=== PATIENT | female | born 1940 | race Asian ===

== ENCOUNTER 2018-04-11 02:31 | Inpatient (IN) | payer BC, OTHER ==
[2018-04-11] MEDS ORDERED: ALBUTEROL HFA 8 GM INHALER INH ×2 (04:00→05:36)
[2018-04-11] MEDS ORDERED: TRIAMCINOLONE ACET 0.1% 15 GM CR TOP (04:00)
[2018-04-11] MEDS ORDERED: NITROGLYCERIN (SL) 0.4 MG TAB SL (04:30)
[2018-04-11] MEDS ORDERED: ACETAMINOPHEN 325 MG TAB PO (04:30)
[2018-04-11] MEDS ORDERED: morphine 2 MG INJ IV (04:30)
[2018-04-11 07:21] LABS: CHOLESTEROL 149 mg/dl (100-200)
[2018-04-11 07:21] LABS: CHOL/HDL RATIO 2.2 RATIO; HDL CHOLESTEROL 66 mg/dl (33-92); LDL CHOLESTEROL,CALCULATED 74 mg/dl; TRIGLYCERIDES 46 mg/dl (0-149)
[2018-04-11 07:30] LABS: TROPONIN-I < 0.012 ng/ml (0.000-0.120)
[2018-04-11] MEDS: FISH OIL 1,000 MG CAP PO ×2 (08:26→20:46)
[2018-04-11] MEDS: AMLODIPINE 5 MG TAB PO (08:26)
[2018-04-11] MEDS: LOSARTAN 50 MG TAB PO (08:26)
[2018-04-11] MEDS: CYCLOSPORINE 0.05% OPH DROPERETTE BOTH EYES ×2 (08:27→20:47)
[2018-04-11] MEDS: ENOXAPARIN 40 MG/0.4 ML SYG SC (08:33)
[2018-04-11] MEDS: PANTOPRAZOLE (EC) 40 MG TAB PO (08:39)
[2018-04-11] MEDS ORDERED: NON-FORMULARY/PATIENT OWN MED (Simvastatin 10 MG) PO (09:00)
[2018-04-11] MEDS ORDERED: NON-FORMULARY/PATIENT OWN MED (Omeprazole* 40 MG) PO (09:00)
[2018-04-11] MEDS: CALCIUM/VITAMIN D (500/200) TAB PO ×2 (09:00→20:47)
[2018-04-11] MEDS ORDERED: GLUCOSAMINE SULFATE 1000 MG PO (09:00)
[2018-04-11] MEDS ORDERED: NON-FORMULARY/PATIENT OWN MED (Salmeterol Xinaf/Fluticasone* (Advair*) 1 INH) INHALATION (09:00)
[2018-04-11] MEDS ORDERED: NON-FORMULARY/PATIENT OWN MED (Omega-3/Dha/Epa/Fish Oil (Fish Oil 1,000 Mg Softgel) 1 EACH PO (09:00)
[2018-04-11 11:22] LABS: TROPONIN-I < 0.012 ng/ml (0.000-0.120)
[2018-04-11] MEDS: DICLOFENAC SODIUM 1% GEL 100 GM TUBE TP ×3 (13:00→20:47)
[2018-04-11] MEDS: IBUPROFEN 200 MG TAB PO ×2 (14:13→20:46)
[2018-04-11] MEDS: FLUTICASONE/VILANTEROL 100-25 INH (15:14)
[2018-04-11 18:08] LABS: TROPONIN-I < 0.012 ng/ml (0.000-0.120)
[2018-04-11] MEDS: MONTELUKAST 10 MG TAB PO (20:46)
[2018-04-11] MEDS: ATORVASTATIN 10 MG TAB PO (20:47)
[2018-04-12] MEDS: IBUPROFEN 200 MG TAB PO ×3 (03:44→14:02)
[2018-04-12] MEDS: PANTOPRAZOLE (EC) 40 MG TAB PO (06:14)
[2018-04-12] MEDS: FISH OIL 1,000 MG CAP PO (09:27)
[2018-04-12] MEDS: CALCIUM/VITAMIN D (500/200) TAB PO (09:27)
[2018-04-12] MEDS: AMLODIPINE 5 MG TAB PO (09:28)
[2018-04-12] MEDS: FLUTICASONE/VILANTEROL 100-25 INH (09:28)
[2018-04-12] MEDS: DICLOFENAC SODIUM 1% GEL 100 GM TUBE TP ×2 (09:28→14:02)
[2018-04-12] MEDS: LOSARTAN 50 MG TAB PO (09:28)
[2018-04-12] MEDS: ENOXAPARIN 40 MG/0.4 ML SYG SC (09:38)
[2018-04-13] MEDS ORDERED: ALENDRONATE 70 MG TAB PO (07:25)
== END 2018-04-12 15:10 | disposition home or self-care (01) | DRG 206 ==
LOC: TEL 02:31
PROVIDERS: Internal Medicine Nephrology
DX: M94.0 Chondrocostal junction syndrome [Tietze] (principal); I10 Essential (primary) hypertension; J45.909 Unspecified asthma, uncomplicated; K21.9 Gastro-esophageal reflux disease without esophagitis; E78.5 Hyperlipidemia, unspecified; M25.519 Pain in unspecified shoulder
CPT/HCPCS: 73030; 80061; 84484; 93005; 93306